=== PATIENT | female | born 1965 ===

== ENCOUNTER 2020-03-14 08:11 | Outpatient (CLI) | payer BC ==
--- NOTE | 2020-03-14 08:44 | ULT ---
GALLBLADDER ULTRASOUND: HISTORY: Right upper quadrant abdominal pain FINDINGS: The liver demonstrates homogeneous echotexture without focal mass or intrahepatic biliary ductal dila tation. No gallstones, gallbladder wall thickening or pericholecystic fluid are seen. The right kidney and pancreas are normal. The common duct [id number] in diameter. No free fluid is seen in the Chu's pouch. IMPRESSION: Normal exam.
== END 2020-03-14 08:12 | disposition home or self-care (01) ==
LOC: BICULT 08:11
PROVIDERS: ATTEND Family Medicine
DX: R10.9 Unspecified abdominal pain (principal)
CPT/HCPCS: 76705